=== PATIENT | female | born 2005 | race Hispanic/Latino ===

== ENCOUNTER 2025-03-17 07:25 | Inpatient (IN) | payer BC ==
[~2025-03-17] VITALS: Ht 157.5 cm; Wt 64.0 kg
[2025-03-17 08:16] LABS: APPEARANCE,URINE CLEAR (CLEAR); BILIRUBIN,URINE NEGATIVE (NEGATIVE); COLOR,URINE LIGHT-YELLOW (YELLOW); GLUCOSE, URINE (UA) NEGATIVE (NEGATIVE); KETONES,URINE NEGATIVE (NEGATIVE); LEUKOCYTE ESTERASE ,URINE NEGATIVE Leu/uL (NEGATIVE); NITRATE,URINE NEGATIVE (NEGATIVE); OCCULT BLOOD,URINE NEGATIVE (NEGATIVE); PROTEIN,URINE 20 mg/dL (NEGATIVE); UROBILINOGEN,URINE 0.2 mg/dL (0.2-1.0)
[2025-03-17 08:17] LABS: AMPHET/METH SCREEN,URINE NEGATIVE (NEGATIVE); BARBITURATE SCREEN, URINE NEGATIVE (NEGATIVE); BENZODIAZEPINES SCREEN,URINE NEGATIVE (NEGATIVE); CANNABINOID SCREEN,URINE NEGATIVE (NEGATIVE); COCAINE SCREEN,URINE NEGATIVE (NEGATIVE); OPIATE SCREEN,URINE NEGATIVE (NEGATIVE); PHENCYCLIDINE SCREEN,URINE NEGATIVE (NEGATIVE)
[2025-03-17 08:19] LABS: ADD UA MICROSCOPIC YES
[2025-03-17 08:26] LABS: BACTERIA,URINE RARE /HPF (None Seen); MUCUS,URINE RARE LPF (None Seen); RBC,URINE 0-1 /HPF (0-1); SQUAMOUS EPITHELIAL CELL,UR RARE /HPF (0-2)
--- NOTE | 2025-03-17 08:40 | ERN ---
General Chief Complaint: Abdominal Pain Stated Complaint: ABDOMINAL PAIN Time Seen by MD: 07:38 History of Present Illness Initial Comments 19-year-old female otherwise healthy presents for vomiting diarrhea generalized abdominal discomfort in the weakness for the last week or so. Patient reports that five or six days ago she was started with vomiting and diarrhea. She went to an outside facility and was diagnosed with colitis. She reports that her symptoms have continued. She vomits five or 6 times per day in his unable to retain liquids. She was also having five or six watery bowel movements daily. No blood in either vomit or stool. She reports some generalized abdominal discomfort, generalized, nonfocal or tender, no radiation to the back. She reports a subjective fever at home. She went to a provider in [place] it was started on amoxicillin in [facility] and [facility]. She reports it was medications are not working and she continues with symptoms. She comes in his morning because she feels weak and dizzy. Allergies: Coded Allergies: No Known Allergies (Unverified Allergy, Unknown, 03/17/25) Past Medical History Past Medical History: Gallstones Past Surgical History: Cholecystectomy Female( History) LMP: Feb 05, 2025 ROS Dictation CONSTITUTIONAL: Weak and dizzy HEAD/FACE: No signs of trauma. EENT: No eye pain, no blurred vision, no tearing, no double vision, no ear pain, no ear discharge, no nose pain, no nasal congestion, no throat pain, no throat swelling, no mouth pain. RESPIRATORY: No cough, no orthopnea, no SOB, no stridor, no wheezing. CARDIOVASCULAR: No chest pain, no edema, no palpitations, no syncope. GASTROINTESTINAL/ABDOMINAL: Vomiting, diarrhea, generalized abdominal discomfort GENITOURINARY: No abnormal discharge, no dysuria, no frequent urination, no hematuria. No complaints of pain in the genitals. MUSCULOSKELETAL: No back pain, no gout, no joint pain, no joint swelling, no muscle pain, no muscle stiffness, no neck pain. INTEGUMENTARY: No change in color, no change in hair/nails, no dryness, no lesion, no lumps, no rash. NEUROLOGICAL/PSYCH: No anxiety, not depressed, no emotional problem, no heada jordy, no numbness, no pre-existing deficit, no history of seizures, no tremors, no weakness. HEMATOLOGIC/LYMPHATIC: Not anemic, no history of blood clots, no apparent bleeding, no bruising, glands not swollen. All Systems Negative, Except as Noted. Physical Exam Physical Exam Dictation VITAL SIGNS: Reviewed. GENERAL APPEARANCE: Alert, oriented x3, no acute distress HEAD AND FACE: Non-traumatic. EYES: PERRL, pink conjunctivas, eyelid no trauma, anterior chamber clear. EARS: Pinnas intact and no signs of trauma or erythema. Ear canals clear and no discharge. TMs no erythema. NOSE: No discharge, no bleeding. OROPHARYNX: Mouth normal, teeth no caries, tongue pink. Pharynx clear, no erythema. Tonsils no exudates, no abscesses noted. Mucous membrane moist. NECK: Supple, non-tender, no thyromegaly, no masses, no JVD, no bruits. BREAST: Deferred. CHEST: No tenderness, no crepitus, no paradoxical movement, no retractions. LUNGS: Clear, well-ventilated, symmetric, no rales, no wheezing, no rhonchi, no stridor, good breath sounds bilaterally. HEART: Regular rate, regular rhythm, no murmur, no gallops. VASCULAR: No peripheral edema. ABDOMEN: Soft, positive bowel sounds, nondistended, no guarding, nontender, no rebound, no masses no hepatomegaly, no splenomegaly, no Pickett's sign, no hernias. RECTAL: Deferred. GENITAL: Deferred. NEUROLOGICAL: Normal speech, gross motor function intact, gross sensory function intact. MUSCULOSKELETAL: Neck nontender, full range of motion, back nontender, full range of motion. EXTREMITIES: Nontender, full range of motion. SKIN: Color pink, dry, no turgor, no rash, no lacerations, no abrasions, no contusions. LYMPHATICS: Deferred. Results Laboratory and Microbiology Lab and Micro Result Laboratory Tests Test 03/17/25 07:43 03/17/25 08:39 Urine Color LIGHT-YELLOW (YELLOW) Urine Appearance CLEAR (CLEAR) Urine pH 5.0 (5.0-8.0) Urine Specific [place] 1.012 (1.001-1.031) Urine Protein 20 mg/dL (NEGATIVE) H Urine Glucose (UA) NEGATIVE mg/dL (NEGATIVE) Urine Ketones NEGATIVE mg/dL (NEGATIVE) Urine Occult Blood NEGATIVE (NEGATIVE) Urine Nitrate NEGATIVE (NEGATIVE) Urine Bilirubin NEGATIVE mg/dL (NEGATIVE) Urine Urobilinogen 0.2 mg/dL (0.2-1.0) Urine Leukocyte Esterase NEGATIVE Noe/uL Urine RBC 0-1 /HPF (0-1) Urine WBC 2-5 /HPF (0-1) H Urine Squamous Epithelial Cells RARE /HPF (0-2) Urine Bacteria RARE /HPF (None Seen) Urine HCG, Qualitative NEGATIVE (NEGATIVE) Urine Opiates Screen NEGATIVE (NEGATIVE) Urine Barbiturates Screen NEGATIVE (NEGATIVE) Urine Phencyclidine Screen NEGATIVE (NEGATIVE) Urine Amphetamines Screen NEGATIVE (NEGATIVE) Urine Benzodiazepines Screen NEGATIVE (NEGATIVE) Urine Cocaine Screen NEGATIVE (NEGATIVE) Urine Marijuana (THC) Screen NEGATIVE (NEGATIVE) White Blood Count 13.7 K/uL (4.8-10.8) H Red Blood Count 4.19 MIL/uL (4.00-5.50) Hemoglobin 12.0 g/dL (12.0-16.0) Hematocrit 35.6 % (36-48) L Mean Corpuscular Volume 85.0 fL (80-100) Mean Corpuscular Hemoglobin 28.6 pg (27.0-33.0) Mean Corpuscular Hemoglobin Concent 33.7 g/dL (32.0-36.0) Red Cell Distribution Width 13.0 % (11.0-15.5) Platelet Count 384 K/uL (130-400) Mean Platelet Volume 9.4 fL (7.5-10.5) Immature Granulocyte % (Auto) 0.4 % (0-1) Neutrophils (%) (Auto) 80.0 % (40.0-77.0) H Lymphocytes (%) (Auto) 9.6 % (21.0-51.0) L Monocytes (%) (Auto) 9.7 % (3.0-13.0) Eosinophils (%) (Auto) 0.1 % (0.0-8.0) Basophils (%) (Auto) 0.2 % (0.0-5.0) Neutrophils # (Auto) 11.0 K/uL (1.8-7.7) H Lymphocytes # (Auto) 1.3 K/uL (1.0-4.8) Monocytes # (Auto) 1.3 K/uL (0.1-1.0) H Eosinophils # (Auto) 0.01 K/uL (0.00-0.70) Basophils # (Auto) 0.03 K/uL (0.00-0.20) Absolute Immature Granulocyte (auto 0.05 K/uL (0-1) Nucleated Red Blood Cells 0.0 % (0.0-0.19) Sodium Level 139 mmol/L (136-145) Potassium Level 4.2 mmol/L (3.5-5.1) Chloride Level 105 mmol/L (101-111) Carbon Dioxide Level 18 mmol/L (21-32) L Blood Urea Nitrogen 29 mg/dL (7-18) H Creatinine 3.8 mg/dL (0.5-1.0) H Glomerular Filtration Rate Calc 17 mL/min (>90) Random Glucose 91 mg/dL (70-105) Total Calcium 8.3 mg/dL (8.5-10.1) L Total Bilirubin 0.5 mg/dL (0.2-1.0) Direct Bilirubin 0.1 mg/dL (0.0-0.3) Aspartate Amino Transf (AST/SGOT) 16 U/L (10-37) Alanine Aminotransferase (ALT/SGPT) 12 U/L (12-78) Alkaline Phosphatase 46 U/L (50-136) L Total Creatine Kinase 44 U/L (21-232) C-Reactive Protein, Quantitative 13.00 mg/L (0.5-3.0) H Total Protein 7.1 g/dL (6.0-8.3) Albumin 3.3 g/dL (3.5-5.0) L Lipase 41 U/L (16-77) MDM CC: Vomiting, diarrhea, abdominal discomfort for the last week or so Historian: Patient Comorbidities: None Limitations by social determinants of health: Uninsured Differential diagnosis: Gastroenteritis, electrolyte abnormality, dehydration, surgical pathology in the abdomen, other Vital signs: Stable remained stable in the ER Labs (independently ordered and interpreted by me): Leukocytosis 13.9 K left shift 80% neutrophils no bands. No anemia. Chemistry shows stable electrolytes, carbon dioxide 18, metabolic acidosis, BUN 29 creatinine 3.8 GFR of 17. Patient was no kidney disease this is an KAY likely due to dehydration. CRP is elevated 13. Liver enzymes are stable lipase is stable. Urinalysis unremarkable. Tox screen negative. CT of the abdomen and pelvis shows no acute complication regarding the diarrheal illness. She does have a cyst in the left ovary it is unlikely related to the patient's presentation. Treatment in ED: 2 L he was lactated Ringer, IV morphine, IV Reglan and Zofran. Re-evaluation: Stable vital signs. Due to the patient's KAY, we will rehydrate and admit for further evaluation into ensure that he KAY corrects. Consultation: Hospitalist for admission. ED Course Orders Procedure Category Date Status Time Lactated Ringers PHA 03/17/25 Complete 1000ml (Lactated 08:00 Cbc With Differential LAB 03/17/25 In Process 07:42 Urinalysis Profile LAB 03/17/25 Complete 07:42 Occult Blood Stool LAB 03/17/25 Logged Single Only 07:42 Creatine Kinase, Total LAB 03/17/25 Complete 07:42 Lipase LAB 03/17/25 Complete 07:42 Basic Metabolic Panel LAB 03/17/25 Complete 07:42 Crp Quantitative LAB 03/17/25 Complete 07:42 Erythrocyte LAB 03/17/25 In Process Sedimentation Rate 07:42 Drug Screen Urine LAB 03/17/25 Complete 07:42 Hepatic Function Panel LAB 03/17/25 Complete 07:42 Ondansetron 4mg Inj PHA 03/17/25 Complete (Zofran 4mg Inj) 08:00 Metoclopramide 10 PHA 03/17/25 Complete Mg/2 Ml Vial (Reglan 1 08:00 Morphine 4mg Syg PHA 03/17/25 Complete (Morphine 4mg Syg) 08:00 ,Urine Test LAB 03/17/25 Complete 07:53 Lactated Ringers PHA 03/17/25 Complete 1000ml (Lactated 09:30 Ct Abdomen/Pelvis W/O CT 03/17/25 Resulted Contrast 09:17 Current Medications Medications (Trade) Dose Ordered Sig/Amber Route PRN Reason Start Time Stop Time Status Last Admin Dose Admin Lactated Ringer's 1,000 ml @ 0 mls/hr ONCE ONCE IV 03/17/25 08:00 03/17/25 08:01 DC 03/17/25 08:57 Lactated Ringer's 1,000 ml @ 0 mls/hr ONCE ONCE IV 03/17/25 09:30 03/17/25 09:31 DC Metoclopramide HCl (regLAN 10MG IV) 5 mg ONCE ONCE IVP 03/17/25 08:00 5/6/25 08:01 DC 03/17/25 08:48 Morphine Sulfate (morPHINE 4MG SYG) 4 mg ONCE ONCE IVP 03/17/25 08:00 03/17/25 08:01 DC 03/17/25 08:48 Ondansetron HCl (zoFRAN 4MG INJ) 4 mg ONCE ONCE IVP 03/17/25 08:00 03/17/25 08:01 DC 03/17/25 08:48 Vital Signs Date Time Temp Pulse Resp B/P (MAP) Pulse Ox O2 Delivery O2 Flow Rate FiO2 03/17/25 08:31 98.4 69 19 103/74 100 Room Air* 0 21 03/17/25 07:29 98.6 88 20 114/84 98 Room Air 0 DX & DISP Disposition: Inpatient (Hospitalist) Departure Impression: Primary Impression: Gastroenteritis Additional Impressions: Severe dehydration, KAY (acute kidney injury) Critical Time: 30 minutes (Critical Care Procedure NoteAuthorized and Performed by: meTotal critical care time: Approximately 36 minutesDue to a high probability of clinically significant, life threatening deterioration, the patient required my highest level of preparedness to intervene emergently and I personally spent this critical care time directly and personally managing the patient. This critical care time included obtaining a history; examining the patient; pulse oximetry; ordering and review of studies; arranging urgent treatment with development of a management plan; evaluation of patient's response to treatment; frequent reassessment; and, discussions with other providers.This critical care time was performed to assess and manage the high probability of imminent, life-threatening deterioration that could result in multi-organ failure. It was exclusive of separately billable procedures and treating other patients and teaching time.Please see MDM section and the rest of the note for further information on patient assessment and treatment.) Condition: Stable Referrals: SELF,REFERRAL (PCP) EDGAR TO DO March 17, 2025 08:40
[2025-03-17 08:47] LABS: BASOPHILS # (AUTO) 0.03 K/uL (0.00-0.20); BASOPHILS % (AUTO) 0.2 % (0.0-5.0); EOSINOPHILS # (AUTO) 0.01 K/uL (0.00-0.70); EOSINOPHILS % (AUTO) 0.1 % (0.0-8.0); HEMATOCRIT 35.6 % (36-48); IMMATURE GRANULOCYTE ABSOLUTE 0.05 K/uL (0-1); LYMPHOCYTES # (AUTO) 1.3 K/uL (1.0-4.8); LYMPHOCYTES % (AUTO) 9.6 % (21.0-51.0); MEAN CORPUSCULAR HEMOGLOBIN 28.6 pg (27.0-33.0); MEAN CORPUSCULAR HGB CONC 33.7 g/dL (32.0-36.0); MONOCYTES # (AUTO) 1.3 K/uL (0.1-1.0); MONOCYTES % (AUTO) 9.7 % (3.0-13.0); PLATELET COUNT (AUTO) 384 K/uL (130-400); RED BLOOD CELL COUNT(AUTO) 4.19 MIL/uL (4.00-5.50); WHITE BLOOD COUNT (AUTO) 13.7 K/uL (4.8-10.8)
[2025-03-17] MEDS: ondanSETRON 4MG INJ IVP ONE (08:48)
[2025-03-17] MEDS: metoCLOPRAmide 10 MG/2 ML VIAL IVP ONE (08:48)
[2025-03-17] MEDS: morPHINE 4 MG SYG IVP ONE (08:48)
[2025-03-17 08:55] LABS: CREATININE 3.8 mg/dL (0.5-1.0); POTASSIUM 4.2 mmol/L (3.5-5.1)
[2025-03-17] MEDS: LACTATED RINGERS 1000ML 1,000 ML IV ONE ×2 (08:57→11:15)
[2025-03-17 08:59] LABS: ALBUMIN 3.3 g/dL (3.5-5.0); BILIRUBIN,DIRECT 0.1 mg/dL (0.0-0.3); BILIRUBIN,TOTAL 0.5 mg/dL (0.2-1.0); TOTAL PROTEIN, SERUM 7.1 g/dL (6.0-8.3)
--- NOTE | 2025-03-17 09:45 | HMCIMG ---
Exam Type: CT ABDOMEN/PELVIS W/O CONTRAST Clinical Information: epigastric pain, vomiting, diarrhea, KAY Comparison: None CT Dose Index (CTDI): 10.20 mGy Dose Length Product (DLP): 530.00 total mGy-cm PROTOCOL: Routine noncontrast helical scanning of the abdomen and pelvis was performed at 5mm collimation. Findings: No evidence of nephro or ureterolithiasis is found. No hydronephrosis or ureteral dilatation is seen. The lung bases are clear. The stomach is unremarkable. It shows no wall thickening. No gross ulceration is seen. It is not overly distended. There are no surrounding inflammatory changes. No wall lesions are identified to suggest cancer. The spleen is unremarkable. It is not enlarged. The pancreas shows normal anatomy. It is not fatty replaced. It shows no lesions. The pancreatic duct is not dilated. The gallbladder is unremarkable. It shows no cholelithiasis. The gallbladder wall is normal in thickness. There is no pericholecystic fluid. The is no acute or chronic inflammation noted. The adrenal glands are unremarkable. There is no enlargement. No lesions are noted. The liver is unremarkable. It shows no focal masses. The appendix is unremarkable. It shows no evidence of inflammation. No appendicolith is seen. The small bowel is unremarkable. There is no evidence of dilatation to suggest obstruction. No evidence of adynamic ileus is seen. There is no small bowel wall thickening to suggest enteritis. The colon is unremarkable. The urinary bladder is unremarkable. There is no wall thickening to suggest tumor or inflammation. There are no intraluminal calculi. There are no diverticula. There is no evidence of chronic bladder outlet obstruction. There is no evidence of urinary bladder distention to suggest urinary retention. Left adnexa demonstrates a complex cystic lesion possibly representing hemorrhagic ovarian cyst measuring 3.6 x 5 cm. The bony and vascular structures are unremarkable for the patient's age. IMPRESSION: Left adnexa demonstrates a complex cystic lesion possibly representing hemorrhagic ovarian cyst measuring 3.6 x 5 cm. This study was performed using dose reduction techniques to include automated exposure control and/or adjustment of the mA and/or kV according to patient size.
[2025-03-17] MEDS ORDERED: MAG/ALUM/SIMETH 30 ML UDCUP PO PRN (10:30)
[2025-03-17] MEDS ORDERED: DiphenhydrAMINE HCL 50 MG/ML VIAL IV PRN (10:30)
[2025-03-17] MEDS ORDERED: NITROGLYCERIN 0.4 MG SL TAB SL PRN (10:30)
[2025-03-17] MEDS ORDERED: MAGNESIUM 2GM PREMIX 50ML 50 ML IV PRN (10:30)
[2025-03-17] MEDS ORDERED: ZOLPidem TARTrate 5 MG TAB PO PRN (10:30)
[2025-03-17] MEDS ORDERED: acetaMINOPHEN 325 MG TAB PO PRN ×3 (10:30)
[2025-03-17] MEDS ORDERED: ketOROlac 15MG/ML VIAL (15MG/ML) IV PRN (10:30)
[2025-03-17] MEDS ORDERED: morPHINE 2 MG SYG IVP PRN (10:30)
[2025-03-17] MEDS ORDERED: GLUCAGON 1MG KIT 1 MG ML IM PRN (10:30)
[2025-03-17] MEDS ORDERED: LACTULOSE 20 GM/30 ML UDCUP PO PRN (10:30)
[2025-03-17] MEDS ORDERED: guaiFENesin-DM 200/20MG 10ML PO PRN (10:30)
[2025-03-17] MEDS ORDERED: hydrALAZine 20MG/ML VIAL IV PRN (10:30)
[2025-03-17] MEDS ORDERED: DEXTROSE 50%-WATER 50 ML DISP.SYRIN IV PRN (10:30)
[2025-03-17] MEDS ORDERED: FAMOTIDINE 20MG VIAL IV PRN (10:30)
[2025-03-17 10:37] LABS: ERYTHROCYTE SEDIMENTATION RATE 15 MM/HR (0-20)
[2025-03-17] MEDS: INSULIN humuLIN R 100 UNIT/ML 3ML SQ SCH (11:30)
[2025-03-17 11:41] LABS: INFLUENZA TYPE A Negative For Type A (NEGATIVE); INFLUENZA TYPE B Negative For Type B (NEGATIVE)
[2025-03-17] MEDS: ondanSETRON 4MG INJ IV PRN (12:42)
[2025-03-17 14:21] LABS: BASE EXCESS,VENOUS BLOOD GAS -6.9 (-2.0-3.0); DEVICE COMMENT L-ARM; HCO3,VENOUS BLOOD GAS 18.9 (22.0-29.0); PCO2,VENOUS BLOOD GAS 39 (38-54); PH,VENOUS BLOOD GAS 7.305 (7.320-7.430); PO2,VENOUS BLOOD GAS 39.1 mmHg (23.0-48.0); VENT MODE, BG PETE-RN (ROOM AIR)
--- NOTE | 2025-03-17 14:30 | HP ---
[facility] HISTORY AND PHYSICAL Date of Service: March 17, 2025 Time of Service: 14:16 PCP:dr Vega Admitting: Dr Velasco, Allergies: No Allergy Information Available, No Known Drug Allergies HISTORY OF PRESENT ILLNESS: [ Patient is19 years old female with a past medical history of cholecystectomy, colitis, who came to emergency department with a complaint of intractable nausea, vomiting and diarrhea for past three days. Patient also stated that for the past last week she has been very weak. Patient stated that about three days ago she went to [facility] where she was diagnosed with colitis. Since then she has been vomiting about four to 5 times a day and had about five diarrheas a day. When asked about diarrhea patient stated the bowel movement was actually formed not watery. After she was released from [facility] patient decided to go to my tomorrow's which was yesterday 03/16/2025 where she was prescribedBuscapine medication, which she never took it. Patient denies any blood in the vomiting or stools. Patient is complaining at this moment of generalized abdominal pain that is tender to touch but does not radiate to the back or groin. Today patient decided to come to [facility] for further evaluation of her abdominal pain and persistent nausea and vomiting which has not improved at all. Patient feels very weak. Mother at the bedside. Most recent vital signs temperature 98.4 pulse 69 respiration 19 blood pressure 103/74. Patient is on room air satting 100%. WBC 13.7 Hemoglobin 12 hematocrit 35.6 platelets 384. UA negative for leukocytosis or nitrates. Serology influenza A negative influenza B negative. Toxicology negative. Sodium 139 potassium 4.2 CO2 18 BUN 29 creatinine 3.8 GFR random glucose 92 CRP 13 albumin [address] abdomen/pelvis that was performed on 03/17/2025 showed left adnexa demonstrates a complex cystic lesions possibly representing hemorrhagic ovary cyst measuring 3.6 x 5 cm. Nurse practitioner we will consult OBGYN , for further evaluation of above-stated radiology results. Nurse practitioner reach out to OBGYN at 2:10 p.m. and left a message on voicemail regarding the consultation. Patient will be admitted under hospitalist care for further evaluation/recommendations. Patient and mother at the bedside were updated regards to further plan. REVIEW OF SYSTEMS CONSTITUTIONAL: Denies fevers, chills, or night sweats. No unintentional weight loss reported. NEUROLOGICAL: Denies headache, amaurosis fugax, motor weakness, sensory deficit, vertigo/spinning sensation, gait abnormalities, or tremors. ENT: No hearing loss, otalgia, otorrhea, rhinitis, rhinorrhea, hoarseness, or sore throat. CARDIOVASCULAR: Denies any exertional angina, dyspnea on exertion, orthopnea, paroxysmal nocturnal dyspnea, palpitations, life-threatening arrhythmias, claudication. PULMONARY: Denies any shortness of breath, cough, phlegm/sputum, hemoptysis, pleuritic chest pain. SLEEP: Denies morning headaches, daytime somnolence or napping. Denies difficulty falling asleep, staying asleep, waking from sleep. Denies knowledge of snoring. GASTROINTESTINAL: Denies any type of dysphagia to either liquids or solids. Denies , pyrosis, early satiety, diarrhea, constipation, or changes in stool consistency or caliber. Denies coffee-ground emesis, hematemesis, hematochezia, or melanotic stools. Severe abdominal pain, nausea, vomiting, multiple bowel movements/soft GENITOURINARY: Denies frequency, urgency, nocturia, hematuria or incontinence (Storage/Irritative symptoms.) Low urinary stream, straining to void, urinary intermittency or hesitancy, splitting of the voiding stream, terminal dribbling. ENDOCRINOLOGIC: Denies polyuria, polydipsia, polyphagia or heat/cold intolerances. HEMATOLOGIC: Denies thrombophilia/previous clots, or coagulopathy/bleeding disorders. ONCOLOGIC: Denies personal history of malignancy. DERMATOLOGIC: Denies rashes or pruritus. PSYCHIATRIC: Denies any suicidal or homicidal ideation. Denies hallucinations. PAST MEDICAL HISTORY: [ Colitis, gallstones ] PAST SURGICAL HISTORY: [ cholecystectomy] PAST SOCIAL HISTORY: [ Patient alcohol illicit. Patient denies any drug usage. Patient denies any smoking ] FAMILY HISTORY: [ Patient lives at home with family. Patient independent ] Coded Allergies: No Known Allergies (Unverified Allergy, Unknown, 03/17/25) PHYSICAL EXAM GENERAL APPEARANCE: The patient is awake, alert, and oriented, in no acute cardiopulmonary distress. NEUROLOGICAL: Cranial nerves II-XII grossly intact. Motor is 5/5 in bilateral upper and lower extremities proximal to distal. No sensory deficits. HEENT: Face is symmetric. Pupils are equal and reactive. Extraocular movements are intact. NECK: Supple. No JVD. No thyromegaly. No submental, submandibular, pre- /postauricular, occipital or supraclavicular lymphadenopathy. CHEST: Normal chest expansion. No Telemetry. LUNGS: Absence of any rales, rhonchi or any wheezing. CARDIOVASCULAR: Regular. S1 and S2 normal. No appreciable rubs, murmurs or gallops. ABDOMEN: Soft, nontender, and nondistended. There is no rebound, voluntary guarding, or rigidity. : Deferred. No Clay. EXTREMITIES: Non-edematous and not cyanotic. No clubbing. Good capillary refill. SKIN: No skin breakdown. Vital Sign (Last 24 Hours) 03/17/25 08:31 Temp 98.4 Pulse 69 Resp 19 B/P (MAP) 103/74 Pulse Ox 100 O2 Delivery Room Air* O2 Flow Rate 0 FiO2 21 LABS: Laboratory: Test 03/17/25 12:47 03/17/25 11:17 03/17/25 08:39 03/17/25 07:43 Range/Units Whole Blood Glucose 92 70-110 MG/DL Influenza Type A Antigen Negative For Type A NEGATIVE Influenza Type B Antigen Negative For Type B NEGATIVE White Blood Count 13.7 H 4.8-10.8 K/uL Red Blood Count 4.19 4.00-5.50 MIL/uL Hemoglobin 12.0 12.0-16.0 g/dL Hematocrit 35.6 L 36-48 % Mean Corpuscular Volume 85.0 80-100 fL Mean Corpuscular Hemoglobin 28.6 27.0-33.0 pg Mean Corpuscular Hemoglobin Concent 33.7 32.0-36.0 g/dL Red Cell Distribution Width 13.0 11.0-15.5 % Platelet Count 384 130-400 K/uL Mean Platelet Volume 9.4 7.5-10.5 fL Immature Granulocyte % (Auto) 0.4 0-1 % Neutrophils (%) (Auto) 80.0 H 40.0-77.0 % Lymphocytes (%) (Auto) 9.6 L 21.0-51.0 % Monocytes (%) (Auto) 9.7 3.0-13.0 % Eosinophils (%) (Auto) 0.1 0.0-8.0 % Basophils (%) (Auto) 0.2 0.0-5.0 % Neutrophils # (Auto) 11.0 H 1.8-7.7 K/uL Lymphocytes # (Auto) 1.3 1.0-4.8 K/uL Monocytes # (Auto) 1.3 H 0.1-1.0 K/uL Eosinophils # (Auto) 0.01 0.00-0.70 K/uL Basophils # (Auto) 0.03 0.00-0.20 K/uL Absolute Immature Granulocyte (auto 0.05 0-1 K/uL Nucleated Red Blood Cells 0.0 0.0-0.19 % White Cell Morphology Comment See comments Erythrocyte Sedimentation Rate 15 0-20 MM/HR Sodium Level 139 136-145 mmol/L Potassium Level 4.2 3.5-5.1 mmol/L Chloride Level 105 101-111 mmol/L Carbon Dioxide Level 18 L 21-32 mmol/L Blood Urea Nitrogen 29 H 7-18 mg/dL Creatinine 3.8 H 0.5-1.0 mg/dL Glomerular Filtration Rate Calc 17 >90 mL/min Random Glucose 91 70-105 mg/dL Total Calcium 8.3 L 8.5-10.1 mg/dL Total Bilirubin 0.5 0.2-1.0 mg/dL Direct Bilirubin 0.1 0.0-0.3 mg/dL Aspartate Amino Transf (AST/SGOT) 16 10-37 U/L Alanine Aminotransferase (ALT/SGPT) 12 12-78 U/L Alkaline Phosphatase 46 L 50-136 U/L Total Creatine Kinase 44 21-232 U/L C-Reactive Protein, Quantitative 13.00 H 0.5-3.0 mg/L Total Protein 7.1 6.0-8.3 g/dL Albumin 3.3 L 3.5-5.0 g/dL Lipase 41 16-77 U/L Urine Color LIGHT-YELLOW YELLOW Urine Appearance CLEAR CLEAR Urine pH 5.0 5.0-8.0 Urine Specific [place] 1.012 1.001-1.031 Urine Protein 20 H NEGATIVE mg/dL Urine Glucose (UA) NEGATIVE NEGATIVE mg/dL Urine Ketones NEGATIVE NEGATIVE mg/dL Urine Occult Blood NEGATIVE NEGATIVE Urine Nitrate NEGATIVE NEGATIVE Urine Bilirubin NEGATIVE NEGATIVE mg/dL Urine Urobilinogen 0.2 0.2-1.0 mg/dL Urine Leukocyte Esterase NEGATIVE NEGATIVE Noe/uL Urine RBC 0-1 0-1 /HPF Urine WBC 2-5 H 0-1 /HPF Urine Squamous Epithelial Cells RARE 0-2 /HPF Urine Bacteria RARE None Seen /HPF Urine HCG, Qualitative NEGATIVE NEGATIVE Urine Opiates Screen NEGATIVE NEGATIVE Urine Barbiturates Screen NEGATIVE NEGATIVE Urine Phencyclidine Screen NEGATIVE NEGATIVE Urine Amphetamines Screen NEGATIVE NEGATIVE Urine Benzodiazepines Screen NEGATIVE NEGATIVE Urine Cocaine Screen NEGATIVE NEGATIVE Urine Marijuana (THC) Screen NEGATIVE NEGATIVE Current Medications Medications (Trade) Dose Ordered Sig/[place] Route PRN Reason Start Time Stop Time Status Last Admin Dose Admin Acetaminophen (TYLenol 325MG TAB) 650 mg Q4H PRN PO MILD PAIN (1-3) 03/17/25 10:30 04/16/25 10:29 Acetaminophen (TYLenol 325MG TAB) 650 mg Q6H PRN PO MILD PAIN (1-3) 03/17/25 10:30 04/16/25 10:29 Acetaminophen (TYLenol 325MG TAB) 650 mg Q6H PRN PO TEMPERATURE GREATER THAN 101.5 03/17/25 10:30 04/16/25 10:29 Al Hydroxide/Mg Hydroxide (MAALox PLUS 30ML) 30 ml Q6H PRN PO INDIGESTION 03/17/25 10:30 04/16/25 10:29 Dextrose (D50w) 50 ml AD PRN IV HYPOGLYCEMIA PROTOCOL 03/17/25 10:30 04/16/25 10:29 Diphenhydramine HCl (BENAdryl INJ) 25 mg Q6H PRN IV SEVERE ITCHING/RASH 03/17/25 10:30 04/16/25 10:29 Famotidine (Pepcid 20mg Vial) 20 mg BID PRN IV NAUSEA/VOMITING 03/17/25 10:30 03/17/25 10:27 DC Famotidine (Pepcid 20mg Vial) 20 mg QODAY IV 03/18/25 09:00 04/17/25 08:59 Glucagon (Glucagon 1mg Kit) 1 mg AD PRN IM HYPOGLYCEMIA PROTOCOL 03/17/25 10:30 04/16/25 10:29 Guaifenesin/ Dextromethorphan (RobiTUSSin DM 200/20MG 10ML) 10 ml Q4H PRN PO COUGH 03/17/25 10:30 04/16/25 10:29 Hydralazine HCl (APRESOLine 20MG INJ) 10 mg Q6H PRN IV For:SBP above 160;DBP above 90 03/17/25 10:30 04/16/25 10:29 Insulin Human Regular (humuLIN R 100 UNIT/ML 3ML) INSULIN SLIDING SCAL... ACHS SQ 03/17/25 11:30 04/16/25 11:29 Ketorolac Tromethamine (toRADol) 15 mg Q8H PRN IV MODERATE PAIN (4-6) 03/17/25 10:30 03/17/25 10:30 DC Lactulose (Constulose 20gm/ 30ml Udcup) 20 gm BID PRN PO CONSTIPATION 03/17/25 10:30 04/16/25 10:29 Magnesium Sulfate 50 ml @ 0 mls/hr PROTOCOL PRN IV OTHER [SEE ORDER COMMENTS] 03/17/25 10:30 04/16/25 10:29 Morphine Sulfate (morPHINE 2MG SYG) 1 mg Q4H PRN IVP SEVERE PAIN (7-10) 03/17/25 10:30 03/24/25 10:29 Nitroglycerin (Nitrostat) 0.4 mg PROTOCOL PRN SL CHEST PAIN 03/17/25 10:30 04/16/25 10:29 Ondansetron HCl (zoFRAN 4MG INJ) 4 mg Q6H PRN IV NAUSEA/VOMITING 03/17/25 10:30 04/16/25 10:29 03/17/25 12:42 4 MG Sodium Chloride 1,000 ml @ 100 mls/hr Q10H IV 03/17/25 10:30 04/16/25 10:29 Zolpidem Tartrate (AmbIEN) 5 mg HS PRN PO INSOMNIA 03/17/25 10:30 04/16/25 10:29 DIAGNOSTICS / RADIOLOGY: [ ] ASSESSMENT: [Acute kidney injury POA Severe dehydration POA Gastroenteritis POA Severe abdominal pain POA Intractable nausea and vomiting POA Hemorrhagic ovarian cyst 3.6 x [address] abdomen/pelvis POA slight leukocytosis WBC 13.7 POA Colitis POA Hypertension Cholecystectomy ] PLAN: [ Admit to: Medical-surgical Consults: OBGYN Antibiotics: Rocephin Tests: Ultrasound pelvis NEURO: Minimize central acting medications as possible. Fall Precautions. Well lighted room through the day and minimize interruptions through the night to prevent acute delirium. PULMONARY: Supplemental 02 as needed BiPAP as necessary, for respiratory distress Titrate Fio2 to keep Spo2 > or = 90% DuoNebs and CPT as needed IS hourly while awake for pulmonary hygiene Out of bed to chair as tolerated VAP Bundle Maintain aspiration precautions at all times CARDIOVASCULAR: Follow hemodynamics. Vital signs per facility protocol GI & NUTRITION: CT abdomen/pelvis left adnexa demonstrate a complex cyst lesion. Possibly representing hemorrhagic ovarian cyst 3.6 x 5 cm Ultrasound pelvis pending Continue nutritional support Aspirations precautions Prokinetic agents and laxatives as needed KIDNEYS & ELECTROLYTES: Strict monitoring of intake and output Daily weights Avoid nephrotoxic agents Monitor electrolytes and replace as needed Goal urine output of 30mL/hr or 0.5mL/kg/hr Medications to be dosed according to renal function. Avoid contrast if possible ENDOCRINE: Maintain blood glucose between 100-180 at all times. Insulin sliding scale for blood glucose management Hypoglycemia and hyperglycemia protocol in place INFECTIOUS DISEASE: Trend temperature, WBC and procalcitonin level Follow cultures, deescalate antibiotics as soon as possible. Panculture if new onset fever HEMATOLOGY & COAGULATION: Monitor H&H. Keep Hgb > 7 Transfuse 1 unit of PRBC for Hgb < 7 Transfuse 1 pack of platelets of platelets < 20, 000 Watch for any signs and symptoms of bleeding SKIN: Pressure ulcer prevention per facility protocol Specialty mattress as needed Treatment plan discussed with patient and family at the bedside Medications to be reconciled once obtained by patient and/or family and available to be reconciled in computer p.r.n. medication for pain nausea and vomiting Questions were answered We will continue to monitor the patient closely Executive Kitchen Manager for disposition Rehab: PT/OT GI: PPI DVT: SCD's Code Status: Full Resuscitation Disposition: TBD Prognosis: Guarded] ATTESTATION BY PHYSICIAN I have seen and examined the patient. I reviewed the documentation, medical decision making, and treatment plan as noted by the mid-level provider above. I agree with the findings and plan of care. OLGA VELASCO MD, KATARZYNA B CHEESE PRODUCTION SUPERVISOR March 17, 2025 14:30
[2025-03-17 14:33] LABS: BASOPHILS # (AUTO) 0.01 K/uL (0.00-0.20); BASOPHILS % (AUTO) 0.1 % (0.0-5.0); EOSINOPHILS # (AUTO) 0.03 K/uL (0.00-0.70); EOSINOPHILS % (AUTO) 0.3 % (0.0-8.0); HEMATOCRIT 31.7 % (36-48); IMMATURE GRANULOCYTE ABSOLUTE 0.06 K/uL (0-1); LYMPHOCYTES # (AUTO) 1.3 K/uL (1.0-4.8); LYMPHOCYTES % (AUTO) 11.4 % (21.0-51.0); MEAN CORPUSCULAR HEMOGLOBIN 28.2 pg (27.0-33.0); MEAN CORPUSCULAR HGB CONC 33.1 g/dL (32.0-36.0); MEAN CORPUSCULAR VOLUME 85.2 fL (80-100); MONOCYTES # (AUTO) 1.3 K/uL (0.1-1.0); MONOCYTES % (AUTO) 11.6 % (3.0-13.0); NEUTROPHILS # (AUTO) 8.8 K/uL (1.8-7.7); NEUTROPHILS % (AUTO) 76.1 % (40.0-77.0); PLATELET COUNT (AUTO) 304 K/uL (130-400); RED BLOOD CELL COUNT(AUTO) 3.72 MIL/uL (4.00-5.50); RED CELL DISTRIBUTION WIDTH 13.2 % (11.0-15.5); WHITE BLOOD COUNT (AUTO) 11.5 K/uL (4.8-10.8)
[2025-03-17 14:37] LABS: CREATININE 3.1 mg/dL (0.5-1.0); POTASSIUM 4.1 mmol/L (3.5-5.1)
[2025-03-17 14:41] LABS: ALBUMIN 2.9 g/dL (3.5-5.0); BILIRUBIN,TOTAL 0.4 mg/dL (0.2-1.0); MAGNESIUM 1.6 mg/dL (1.80-2.40); TOTAL PROTEIN, SERUM 6.2 g/dL (6.0-8.3)
--- NOTE | 2025-03-17 14:55 | NUR ---
DCP: HOME Pt currently lives at home with her mom. Pt is employed at [employer]. Pt does not have any home health or provider services at this time. Pt does not have any DME. PCP is Dr. Matty Rosales and uses JIM Rodriguez ([place]) for any RX needs. At [place] pt wants to go back home Addendum: 03/17/25 at 1457 by GURPREET HWANG SS Amended: Links added.
[2025-03-17] MEDS ORDERED: MAGNESIUM 2GM PREMIX 50ML 50 ML IV SCH (15:00)
[2025-03-17] MEDS: 0.9%NACL 1000ML 1,000 ML IV SCH (15:06)
[2025-03-17 15:36] LABS: % IRON SATURATION 21.6 % (22-44)
[2025-03-17] MEDS: SODIUM BICARB 50MEQ 50ML VIAL IV ONE (15:37)
[2025-03-17] MEDS: CEFTRIAXONE 2GM VIAL IVPB SCH (15:37)
--- NOTE | 2025-03-17 16:09 | HMCIMG ---
Exam Type: US PELVIC NON-OB COMP Clinical Information: ovarian cysts Comparison: None Findings: Uterus is normal in size and echogenicity and vascularity. Endometrial lining is normal in thickness. Right ovary measures 4.6 x 2.5 x 1.6 cm and shows a follicle measuring 1.7 cm. Left ovary not seen. IMPRESSION: Normal uterus and endometrium. Right ovarian follicle. Nonvisualization of the left ovary.
--- NOTE | 2025-03-17 16:31 | DS ---
Discharge Summary Hospital Course Summary: DATE OF ADMISSION:[03/17/2025] DATE OF DISCHARGE:[03/17/2025] DISPOSITION:[Transferred to [facility] in [place]] CONDITION:[Medical necessity CONSULTANTS:[OBGYN] FOLLOW UP APPOINTMENTS:[] PROCEDURES:[None] IMAGING: report attached to summary MICROBIOLOGY: report attached to summary ACTIVITY:[Independent] HOME MEDICATIONS: see med [facility] NEW MEDICATIONS:[None] EMERGENCY INSTRUCTIONS: The patient was instructed to present to the nearest Emergency departmentr or call 911 once their symptoms will return or worsen C Engineer(s): Patient is20 years old female with a past medical history of cholecystectomy, colitis, who came to emergency department with a complaint of intractable nausea, vomiting and diarrhea for the past three days. Patient stated that she has been very weak. Patient went to [facility] way she was diagnosed with colitis and then she was discharged home after that she continued to have nausea vomiting and about five diarrheas today. Patient decided to come to [facility] for further evaluation of the above symptoms. During hospitalization CT abdomen/pelvis was performed on 03/17/2025 that showed left adnexa demonstrates a complex cystic lesions possible representing hemorrhagic ovarian cyst measuring 3.6 x 5 cm. We consulted OBGYN but unfortunately they are not taking any new consult at [facility] and they recommended to transfer patient to [facility] in [place] under their care. Labs were repeat WBC has improved 11.5 hemoglobin d ropped from 12 to 10.5 hematocrit dropped from 35.6 to 31.7. Save 2 g of magnesium for magnesium 1.6. Creatinine has improved 3.1 BUN24 GFR 21. Procedure(s): REVIEW OF SYSTEMS CONSTITUTIONAL: Denies fevers, chills, or night sweats. No unintentional weight loss reported. NEUROLOGICAL: Denies headache, amaurosis fugax, motor weakness, sensory deficit, vertigo/spinning sensation, gait abnormalities, or tremors. ENT: No hearing loss, otalgia, otorrhea, rhinitis, rhinorrhea, hoarseness, or sore throat. CARDIOVASCULAR: Denies any exertional angina, dyspnea on exertion, orthopnea, paroxysmal nocturnal dyspnea, palpitations, life-threatening arrhythmias, claudication. PULMONARY: Denies any shortness of breath, cough, phlegm/sputum, hemoptysis, pleuritic chest pain. SLEEP: Denies morning headaches, daytime somnolence or napping. Denies difficulty falling asleep, staying asleep, waking from sleep. Denies knowledge of snoring. GASTROINTESTINAL: Denies any type of dysphagia to either liquids or solids. Denies , pyrosis, early satiety, diarrhea, constipation, or changes in stool consistency or caliber. Denies coffee-ground emesis, hematemesis, hematochezia, or melanotic stools. Severe abdominal pain, nausea, vomiting, multiple bowel movements/soft GENITOURINARY: Denies frequency, urgency, nocturia, hematuria or incontinence (Storage/Irritative symptoms.) Low urinary stream, straining to void, urinary intermittency or hesitancy, splitting of the voiding stream, terminal dribbling. ENDOCRINOLOGIC: Denies polyuria, polydipsia, polyphagia or heat/cold intolerances. HEMATOLOGIC: Denies thrombophilia/previous clots, or coagulopathy/bleeding disorders. ONCOLOGIC: Denies personal history of malignancy. DERMATOLOGIC: Denies rashes or pruritus. PSYCHIATRIC: Denies any suicidal or homicidal ideation. Denies hallucinations. Assessment/Plan: ASSESSMENT: [Acute kidney injury POA Severe dehydration POA Gastroenteritis POA Severe abdominal pain POA Intractable nausea and vomiting POA Hemorrhagic ovarian cyst 3.6 x [address] abdomen/pelvis POA slight leukocytosis WBC 13.7 POA Colitis POA Hypertension Cholecystectomy ] Time spent arranging discharge: 31-60 minutes ATTESTATION BY PHYSICIAN I have seen and examined the patient. I reviewed the documentation, medical decision making, and treatment plan as noted by the mid-level provider above. I agree with the findings and plan of care. OLGA VELASCO MD, KATARZYNA B CLIENT RELATIONSHIP EXECUTIVE March 17, 2025 16:31
[2025-03-17] MEDS: SODIUM BICARBONATE 650 MG TAB PO SCH (17:00)
--- NOTE | 2025-03-17 19:29 | NUR ---
CALLED AND GAVE REPORT TO ADAMARIS RN FROM [facility], I CALLED EMS AND SPOKE TO [facility] FOR TRANSFER PATIENT RESTING IN BED, CALL LIGHT IN REACH, MOM AT BEDSIDE
[2025-03-17 19:45] VITALS: BP 111/73; PULSE 73; RESP 18; TEMP 98.6; O2SAT 98
[2025-03-18] MEDS ORDERED: FAMOTIDINE 20MG VIAL IV SCH (09:00)
== END 2025-03-17 20:00 | disposition short-term general hospital (02) | DRG 392 ==
LOC: EDH 07:25 → EDHIP 10:17
PROVIDERS: ADMIT Internal Medicine; ATTEND Internal Medicine
DX: K52.9 Noninfective gastroenteritis and colitis, unspecified (principal); N17.9 Acute kidney failure, unspecified; E86.0 Dehydration; I10 Essential (primary) hypertension; N83.209 Unspecified ovarian cyst, unspecified side; Z90.49 Acquired absence of other specified parts of digestive tract; Z79.899 Other long term (current) drug therapy
CPT/HCPCS: 36415; 36600; 74176; 76856; 80048; 80053; 80076; 80305; 81001; 81025; 82435; 82550; 82803; 82947; 82948; 83540; 83550; 83605; 83690; 83735; 84132; 84295; 85025; 85651; 86140; 87804; 99285; G0378; J0696; J2270; J2405; J2765; J3490; J7120